=== PATIENT | male | born 1960 | race Caucasian/White ===

== ENCOUNTER → 2016-07-14 | Day surgery (SDC) | payer OTHER ==
[~2016-07-14] MED LIST: LACTATED RINGER'S 1000 ML INJ 1,000 ML ONE; MEDR4PAK3 PO; PROPOFOL 200 MG/20 ML AMP IV ONE
--- NOTE | 2016-07-14 09:49 | GIPROC ---
[facility] [address] [facility], [id number] COLONOSCOPY PROCEDURE REPORT EXAM DATE: 07/14/2016 PATIENT NAME: Giorgio Holman MR #: [id number] BIRTHDATE: 1960 ENDOSCOPIST: Jaime Blevins MD ORDER #: [id number] MANAGER TELEMARKETING: Susan Bazan RN STATUS: outpatient INDICATIONS: The patient is a 56 yr old male here for a colonoscopy due to average risk patient for colon cancer PROCEDURE PERFORMED: Colonoscopy, screening MEDICATIONS: None and Per Anesthesia. PREP QUALITY: excellent ESTIMATED BLOOD LOSS: None CONSENT: The patient understands the risks and benefits of the procedure and understands that these risks include, but are not limited to: sedation, allergic reaction, infection, perforation and/or bleeding. Alternative means of evaluation and treatment include, among others: physical exam, x-rays, and/or surgical intervention. The patient elects to proceed with this endoscopic procedure. medical equipment was checked for proper function. Hand hygiene and appropriate measures for infection prevention was taken. After the risks, benefits and alternatives of the procedure were thoroughly explained, Informed consent was verified, confirmed and timeout was successfully executed by the treatment team. A digital exam revealed no abnormalities of the rectum The EC-[id number] ([id number] endoscope was introduced through the anus and advanced to the cecum, which was identified by both the appendix and ileocecal valve. The instrument was then slowly withdrawn as the colon was fully examined. COLON FINDINGS: The colonic mucosa appeared normal. Retroflexed views revealed no abnormalities The scope was then completely withdrawn from the patient and the procedure terminated. PROCEDURE WITHDRAWAL TIME:8.3minutes ADVERSE EVENTS: There were no complications. IMPRESSIONS: 1. The colonic mucosa appeared normal 2. Retroflexed views revealed no abnormalities 3. Revealed no abnormalities of the rectum RECOMMENDATIONS: 1. Yearly hemoccult 2. High fiber diet 3. Follow-up: GI Clinic PRN RECALL: Return 10 years Colonoscopy Jaime Blevins MD eSigned: Jaime Blevins MD 07/14/2016 9:48 AM cc: Maxwell Cotton M.D and Helga Mooney [facility] [place]
== END | disposition home or self-care (01) ==
LOC: ESDC 08:05
PROVIDERS: ATTEND Internal Medicine Gastroenterology
DX: Z12.11 Encounter for screening for malignant neoplasm of colon (principal)
CPT/HCPCS: 00810; 45378; J7120